=== PATIENT | female | born 1935 | race Caucasian/White ===

== ENCOUNTER → 2016-04-19 | Outpatient (CLI) | payer OTHER, MEDICARE ==
[2016-04-19 13:01] LABS: HEMOGLOBIN A1C 7.23 % (4.2-6.0); MEAN BLOOD GLUCOSE (CALC) 154.759 mg/dL
[2016-04-19 13:43] LABS: BUN/CREATININE RATIO 30.9 (6-20); CALCIUM 10.3 mg/dL (8.7-10.7); CREATININE 1.1 mg/dL (0.50-1.20); POTASSIUM 4.2 meq/L (3.8-5.2)
== END ==
LOC: MOB LAB 11:35
DX: E11.21 Type 2 diabetes mellitus with diabetic nephropathy (principal); E11.9 Type 2 diabetes mellitus without complications
CPT/HCPCS: 36415; 80048; 83036

== ENCOUNTER → 2016-06-05 | Outpatient (CLI) | payer OTHER, MEDICARE ==
[2016-06-05 12:14] LABS: HEMATOCRIT 37.3 % (37.0-47.0); HEMOGLOBIN 12.9 g/dL (12.0-16.0); MEAN CORPUSCULAR HEMOGLOBIN 29.9 PG (27-31); MEAN CORPUSCULAR HGB CONC 34.6 g/dL (33-37); MEAN CORPUSCULAR VOLUME 86.3 FL (81-99); MEAN PLATELET VOLUME 9.1 FL (7.4-12.2); RED BLOOD COUNT 4.32 10^6/uL (4.20-5.40)
[2016-06-05 12:41] LABS: BUN/CREATININE RATIO 24.54 (6-20); CALCIUM 9.7 mg/dL (8.7-10.7); PHOSPHORUS 4.1 mg/dl (2.4-4.3); SERUM ALBUMIN 3.8 g/dL (3.5-4.8)
== END ==
LOC: LAB 11:50
PROVIDERS: ATTEND Physician Assistant Medical
DX: N18.3 Chronic kidney disease, stage 3 (moderate) (principal); D63.1 Anemia in chronic kidney disease; N25.81 Secondary hyperparathyroidism of renal origin; R80.9 Proteinuria, unspecified
CPT/HCPCS: 36415; 80069; 82565; 83970; 84156; 85027

== ENCOUNTER → 2016-06-15 | Outpatient (CLI) | payer OTHER, MEDICARE | LOC: MMPC 11:11 | DX: E11.21 Type 2 diabetes mellitus with diabetic nephropathy (principal); M17.11 Unilateral primary osteoarthritis, right knee; I10 Essential (primary) hypertension; K21.9 Gastro-esophageal reflux disease without esophagitis; E03.9 Hypothyroidism, unspecified; E78.2 Mixed hyperlipidemia; E55.9 Vitamin D deficiency, unspecified; D63.1 Anemia in chronic kidney disease; M10.9 Gout, unspecified | CPT/HCPCS: 99213; G0463 ==

== ENCOUNTER → 2016-06-26 | Outpatient (CLI) | payer OTHER, MEDICARE ==
--- NOTE | 2016-06-26 12:02 | DI ---
RIGHT KNEE, 06/26/2016 10:56 AM: Clinical History: Right knee pain. Previous Exam: 11/11/2009. 4 views are submitted. The AP and tunnel projections are weight bearing views. There is no acute soft tissue, osseous, or joint abnormality. There is moderately severe narrowing of the lateral compartme nt with mild narrowing of the medial compartment. Calcifications are present in the cartilaginous rupal faces of all 3 compartments indicating chondrocalcinosis. There is lateral subluxation of the patella with narrowing of the joint space between the lateral facet of the patella and the lateral femoral c ondyle. Readin. Moderately severe degenerative change of the lateral compartment with mild to moderate degenerati ve change of the patellofemoral and medial compartments. 2. Chondrocalcinosis.
--- NOTE | 2016-06-26 12:18 | DI ---
AP PELVIS and RIGHT HIP, 06/26/2016 10:56 AM: Clinical History: Right hip pain. Previous Exam: None at this facility. There is no soft tissue abnormality. The bony structures of the pelvis are normal. 2 views of the rig ht hip show cystic degenerative changes in the medial aspect of the right acetabulum and the femoral head. There is complete obliteration of the superior joint space. The femoral head is a spherical. Readin. 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 2. The AP pelvis view is unremarkable.
== END ==
LOC: ORTHO 10:58
PROVIDERS: ATTEND Orthopaedic Surgery
DX: M25.561 Pain in right knee (principal); M25.551 Pain in right hip; M16.11 Unilateral primary osteoarthritis, right hip; M17.11 Unilateral primary osteoarthritis, right knee; M11.261 Other chondrocalcinosis, right knee
CPT/HCPCS: 73502; 73564

== ENCOUNTER → 2016-07-10 | Outpatient (CLI) | payer OTHER, MEDICARE | LOC: MMPC 10:00 | PROVIDERS: ATTEND Orthopaedic Surgery | DX: M16.11 Unilateral primary osteoarthritis, right hip (principal); M17.11 Unilateral primary osteoarthritis, right knee | CPT/HCPCS: 99213; G0463 ==

== ENCOUNTER 2016-07-11 11:26 | Day surgery (SDC) | payer OTHER, MEDICARE ==
[~2016-07-11 11:26] MED LIST: BETAMET ACET/BETAMET NA PH 6 MG/1 ML - 5 ML ONE; Iopamidol Inj 61% 50 ML VIAL ONE; LIDOCAINE MPF 2% - 5 ML (20 MG/1 ML) ONE; LIDOCAINE W/ SODIUM BICARB 0.5 ML SYR ONE; ROPIVACAINE HCL 7.5 MG/1 ML - 20 ML ONE
[2016-07-11 11:50] VITALS: RESP 18
[2016-07-11 13:19] VITALS: TEMP 97.4
== END 2016-07-11 12:42 | disposition home or self-care (01) ==
LOC: SDSC 11:26
PROVIDERS: ATTEND Orthopaedic Surgery
DX: M16.11 Unilateral primary osteoarthritis, right hip (principal)
CPT/HCPCS: 20610; 76000; J0702; J2001

== ENCOUNTER → 2016-07-20 | Outpatient (CLI) | payer OTHER, MEDICARE | LOC: MMPC 10:00 | PROVIDERS: ATTEND Orthopaedic Surgery | DX: M16.11 Unilateral primary osteoarthritis, right hip (principal) | CPT/HCPCS: 99213; G0463 ==

== ENCOUNTER → 2016-08-31 | Outpatient (CLI) | payer OTHER, MEDICARE ==
[2016-08-31 13:26] LABS: BLOOD UREA NITROGEN 29 mg/dL (7-22); CALCIUM 9.8 mg/dL (8.7-10.7); CHOL/HDL RATIO 2.51 RATIO (0-4.0); HDL CHOLESTEROL 78 mg/dL (40-150); HEMOGLOBIN A1C 6.85 % (4.2-6.0); SERUM ALBUMIN 3.9 g/dL (3.5-4.8); SERUM CHOLESTEROL 196 mg/dL (120-200); URIC ACID 7.9 mg/dl (2.5-7.5)
[2016-08-31 14:39] LABS: FREE T4 (FREE THYROXINE) 1.01 ng/dL (0.93-1.71)
== END ==
LOC: MOB LAB 11:52
DX: E11.9 Type 2 diabetes mellitus without complications (principal); M10.9 Gout, unspecified; E78.2 Mixed hyperlipidemia; E55.9 Vitamin D deficiency, unspecified; E03.9 Hypothyroidism, unspecified; R25.1 Tremor, unspecified; I12.9 Hypertensive chronic kidney disease with stage 1 through stage 4 chronic kidney disease, or unspecified chronic kidney disease; N18.9 Chronic kidney disease, unspecified; D63.1 Anemia in chronic kidney disease
CPT/HCPCS: 36415; 80053; 80061; 82306; 83036; 84100; 84439; 84443; 84550

== ENCOUNTER 2017-06-09 10:55 | Observation (INO) ==
--- NOTE | 2017-06-09 11:19 | PDOC ---
Shoulder Injury/Pain HPI - General Chief Complaint: Upper Extremity Problem/Injury Stated Complaint: R ARM PAIN Date Seen by Provider: 06/09/17 Time Seen by Provider: 11:19 Source: POSITIVE: Patient Exam Limitations: POSITIVE: No limitations Nurse's Notes Reviewed & Considered: Yes - History of Present Illness Initial Comments: Patient is an 82-year-old female who presents to the emergency department for evaluation of pain. Patient describes pain predominantly in the right arm located in the shoulder radiates down. She does have a history of chronic bilateral shoulder pain but it was worse today. No new trauma. Patient denies chest pain or shortness of breath. She does have some discomfort up into the right side of the neck. No headache or dizziness. Patient denies weakness in the arms. She does have some chronic numbness to her hands bilaterally predominantly at the first second and third digit. Patient is hypertensive and reports taking her medications today. She is also diabetic but sounds like her hemoglobin A1c has been well-controlled. No abdominal pain. No pain or swelling in her lower extremities. Have you received a tetanus shot in the past 10 years?: Yes - Patient Home Medications Home Medications: Home Medications Magnesium [Mag-Tab Sr] 84 mg PO DAILY tab 06/25/13 Cholecalciferol (Vitamin D3) [Vitamin D3] 2 cap PO QD #60 cap 09/01/16 allopurinol 100 mg tablet 100 mg PO BID #180 tab 12/13/16 amlodipine 10 mg tablet 10 mg PO QAM #90 tab 12/13/16 levothyroxine 112 mcg tablet 112 mcg PO QD #102 tab 12/13/16 simvastatin 40 mg tablet 40 mg PO QHS #90 tab 12/13/16 sitagliptin 50 mg tablet 50 mg PO QD #90 tab 03/15/17 Aspirin 162 mg PO 06/09/17 Furosemide [Lasix] 40 mg PO BID 06/09/17 Lisinopril 20 mg PO DAILY 06/09/17 Pentoxifylline 400 mg PO TID 06/09/17 - Patient Allergies Allergies/Adverse Reactions: Allergies 3 Allergy/AdvReac Type Severity Reaction Status Date / Time primidone AdvReac DIZZINESS Verified 06/09/17 11:12 Past Medical History - heen HEENT History: Denies History, Dentures/Partials Cardiovascular History: Hypertension, Arrhythmia, Hyperlipidemia Additional Cardiovasular History: LAST FEW WEEKS HAS FELT "SKIPPED BEATS" Respiratory History: Denies History Gastrointestinal History: Denies History Genitourinary History: Renal Disease Endocrine History: Type 2 Diabetes (oral), Hypothyroidism Musculoskeletal History: Osteoporosis, Gout Additional Musculoskeletal History: DIABETIC NEUROPATHY Neurological History: Denies History Blood Disorders: Anemia Psychiatric History: Denies History History of Sexually Transmitted Diseases: No Female Reproductive History: Denies History Obstetrical History: Denies History Cancer History: Denies History In Past Year Been Physically Harmed or Verbally Threatened: No History of MDRO: No Tobacco Use: Never Smoker Alcohol Use: None In the Past 12 Months, Have Used or Abuse Any Substance: None Previous Surgical History: Yes Type / Date of Surgery: CATARACTS Significant Family History: No pertinent family hx Past Medical History Reviewed: Reviewed - No Changes ROS - Limitations ROS Limitations: No Limitations Constitution: REPORTS: Denies Symptoms Cardiovascular: REPORTS: Denies Cardiac Symptoms Respiratory: REPORTS: Denies Resp Symptoms Neurological: REPORTS: Numbness Gastrointestinal: REPORTS: Denies GI Symptoms Endocrine: REPORTS: Denies Symptoms Musculoskeletal: REPORTS: Other (Right shoulder pain) Genitourinary: REPORTS: Denies Symptoms Eyes: REPORTS: Denies Symptoms ENT: REPORTS: Denies Symptoms Skin: REPORTS: Denies Skin Symptoms Shoulder Injury/Pain Exam - General Appearance General Appearance: POSITIVE: Alert, Cooperative, No Acute Distress - Upper Extremity Shoulder: POSITIVE: Other (There is crepitance and tenderness with range of motion of the right shoulder.) Neuro/Vascular: POSITIVE: Other (Decreased sensation bilaterally for second and third digit. Good pulses and intact cap refill) Skin: POSITIVE: Warm, Dry - HEENT HEENT: POSITIVE: Head Inspection Nml - Neck / Back Neck/Back: POSITIVE: Other (Very minimal tenderness to palpation of the neck no meningismus no deformity) - Respiratory / CVS Respiratory / CVS: POSITIVE: Breath Sounds Normal, No Respiratory Distress, Regular Rate/Rhythm, Other (Systolic murmur noted. Rate and rhythm.) - Abdomen Abdomen: Soft: (All Quadrants), Denies Tenderness: (All Quadrants) Shoulder Pain/Injury Progress - Results Reviewed by me Xrays/CTs/US Reviewed by me: Yes Lab Results Reviewed by Me: Yes CBC and BMP: 06/09/17 11:20 06/09/17 11:30 Rhythm Strip Interpretation: POSITIVE: Other (First-degree A-V no block. ST depression or T-wave inversions. No acute ST elevation.) - Patient's Progress Pain Medication Addressed: POSITIVE: Yes MDM / ED Course: Patient is an 82-year-old female who presents to the emergency department with arm discomfort. Vital signs are notable for hypertension and examination him straights arthritic type changes in the arm and shoulder. Differential diagnosis includes but is not limited to ACS, pneumonia, pneumothorax, arthritis. With right-sided numbness in the hands this appears to be more chronic may be neuropathic in nature immediate MRI at some point. X-ray of the chest is unremarkable other than coronary calcifications and x-ray of the right shoulder does demonstrate severe arthritis. Patient's pain spontaneously resolved with rest initially had ordered morphine. Her initial troponin was negative however the second troponin was trending up. In the setting of hypertension, diabetes, female at age with increasing troponin and abnormal EKG will admit patient for cardiac rule out. Patient Care Time - Estimated PCT Patient Care Time (In Minutes): 45 Vital Signs - Recent Vital Signs Vital Signs: Vital Signs (Last 8 hours) Temp Pulse Resp BP Pulse Ox 06/09/17 11:00 97.6 F 98 18 191/93 96 Discharge Clinical Impression: Right arm pain, Abnormal EKG Discharge Disposition: Admit to Observation Condition: Good Date Decision to Admit to Inpatient: 06/09/17 Time Decision to Admit to Inpatient: 14:06
[2017-06-09] MEDS ORDERED: NORMAL SALINE 10 ML SYRINGE FLUSH IVP PRN ×2 (11:20→14:52)
[2017-06-09] MEDS ORDERED: MORPHINE SULFATE 4 MG/1 ML IVP ONE (11:20)
--- NOTE | 2017-06-09 11:30 | EKG ---
[address] [address] Measurements Intervals [place] Rate: 88 P: 61 NC: 228 QRS: 26 QRSD: 97 T: 70 QT: 361 QTc: 407 Interpretive Statements SINUS RHYTHM WITH FIRST DEGREE AV BLOCK NONSPECIFIC ST & T-WAVE ABNORMALITY Compared to ECG 08/06/2014 08:08:29 T-wave abnormality now present ST (T wave) deviation no longer present Electronically Signed On 06-11-17 08:30:52 MDT by Lucio Zapien MD [email or web address]
[2017-06-09 11:42] LABS: BASOPHILS # (AUTO) 0.01 10*3/UL; BASOPHILS % (AUTO) 0.2 % (0-1); EOSINOPHILS # (AUTO) 0.08 10*3/UL; EOSINOPHILS % (AUTO) 1.5 % (0-8); Hematocrit [HCT] 38.7 % (37.0-47.0); Hemoglobin [HGB] 13.5 g/dL (12.0-16.0); LYMPHOCYTES # (AUTO) 1.16 10*3/uL; MEAN CORPUSCULAR HEMOGLOBIN 29.9 PG (27-31); MEAN CORPUSCULAR HGB CONC 34.9 g/dL (33-37); MEAN CORPUSCULAR VOLUME 85.6 FL (81-99); MONOCYTES # (AUTO) 0.43 10*3/UL (0.3-0.8); MONOCYTES % (AUTO) 8.2 % (5-15); NEUTROPHILS # (AUTO) 3.58 10*3/UL; NEUTROPHILS % (AUTO) 67.9 % (50-80); PLATELET MORPHOLOGY COMMENT NORMAL MORPHOLOGY (NORM); RBC MORPHOLOGY COMMENT NORMAL MORPHOLOGY (NORM); RED BLOOD COUNT 4.52 10^6/uL (4.20-5.40); WBC MORPHOLOGY COMMENT NORMAL MORPHOLOGY (NORM)
[2017-06-09 11:50] LABS: BLOOD UREA NITROGEN 28 mg/dL (7-22); BUN/CREATININE RATIO 23.33 (6-20)
--- NOTE | 2017-06-09 12:07 | DI ---
Chest PA and lateral views INDICATION: Pain COMPARISON: 08/05/14 FINDINGS: PA and lateral views of the chest are obtained. The cardiomediastinal silhouette is within normal limits. Lungs are clear. No pleural effusions. Bony elements are within normal limits. Atherosclerotic vascular disease. IMPRESSION: No acute cardiopulmonary disease.
--- NOTE | 2017-06-09 12:17 | DI ---
RIGHT SHOULDER, Views INDICATION: Pain COMPARISON: None FINDINGS: 3 views of the right shoulder are obtained. Bony structures are intact. Bone mineralization is within normal limits. No dislocation at the glenohumeral joint. Severe degenerative changes at the glenohumeral and acromioclavicular joint spaces. Soft tissues are within normal limits. IMPRESSION: No acute fracture or dislocation identified.
[2017-06-09] MEDS ORDERED: LIDOCAINE W/ SODIUM BICARB 0.5 ML SYR SUBD PRN (14:52)
[2017-06-09] MEDS ORDERED: ONDANSETRON 4 MG/2 ML VIAL IVP PRN (14:52)
[2017-06-09] MEDS ORDERED: CALCIUM CARBONATE 500 MG (TUMS) CHEWABLE TABLET PO PRN (14:52)
[2017-06-09] MEDS: PENTOXIFYLLINE 400 MG PO SCH ×2 (15:46→20:23)
--- NOTE | 2017-06-09 16:11 | PDOC ---
HPI - History of Present Illness Date of Service: 06/09/17 Time of Service: 16:00 Chief Complaint: Right shoulder pain History of Present Illness: This is a very pleasant 82-year-old female accompanied with her son today. She came in with acute onset of right shoulder and arm pain that was quite severe and lasted 10-15 minutes before remitting spontaneously emergency room. Her son saw her and stated that he thought she did not look well which is why she came in for evaluation. She's had about 3 months of bilateral shoulder pain, right worse than left, and some numbness and tingling in her first 3 fingers on her right hand. She denies any shortness of breath, nausea, or vomiting, or diaphoresis with this pain today. She is diabetic. She has a known heart murmur, and stated that she followed a executive legal secretary in the past but after year was excused from the practice as it was felt she no longer needed follow-up. She had an echocardiogram but no stress testing done that she remembers. The results of that echocardiogram are not available. There were no other exacerbating factors, and food does not seem to make the pain worse. EKG in the emergency room showed some nonspecific ST changes. Troponins were negative , but very slight increase from a negative troponin to 1 of 0.02. She does not have hypertension, she has cholesterol problems, she has a family history of heart disease, she does not smoke. Past Medical History Medical History: 1. Diabetes for more than 20 years on Januvia. 2. 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 3. Hypertension. 4. Hyperlipidemia. 5. Gout Surgical History: 1. Bladder suspension. 2. Cataract surgery few years ago Family History: Reviewed an Not Pertinent Pertinent Family History: Significant for coronary artery disease in her father and in one of her sons. Past Social History: Does not smoke. Had 2 biologic sons and adopted daughter. She has 1 son living as her younger son of heart disease complications. She is . Does not drink alcohol. Tobacco Use: Never Smoker In the Past 12 Months, Have Used or Abuse Any of the Following Substance: None Alcohol Use: None Medication / Allergies Home Medications: Home Medications 3 Medication Instructions Recorded Confirmed Type Magnesium [Mag-Tab Sr] 84 mg PO DAILY tab 06/25/13 06/09/17 History Cholecalciferol (Vitamin D3) 2 cap PO QD #60 cap 09/01/16 06/09/17 Rx [Vitamin D3] allopurinol 100 mg tablet 100 mg PO BID #180 tab 12/13/16 06/09/17 Rx amlodipine 10 mg tablet 10 mg PO QAM #90 tab 12/13/16 06/09/17 Rx levothyroxine 112 mcg tablet 112 mcg PO QD #102 tab 12/13/16 06/09/17 Rx simvastatin 40 mg tablet 40 mg PO QHS #90 tab 12/13/16 06/09/17 Rx sitagliptin 50 mg tablet 50 mg PO QD #90 tab 03/15/17 06/09/17 Rx Aspirin 162 mg PO 06/09/17 History Furosemide [Lasix] 40 mg PO BID 06/09/17 06/09/17 History Lisinopril 20 mg PO DAILY 06/09/17 06/09/17 History Pentoxifylline 400 mg PO TID 06/09/17 06/09/17 History Allergies/Adverse Reactions: Allergies 3 Allergy/AdvReac Type Severity Reaction Status Date / Time primidone AdvReac DIZZINESS Verified 06/09/17 11:12 Review of Systems - Review of Systems All Systems: Reviewed & No Additional Complaints Except as Stated (I did a 12 point review systems and it is negative other than the history of present illness noted above and the exceptions noted below) - Respiratory Respiratory: REPORTS: Negative System Review - Cardiovascular Cardiovascular: REPORTS: See HPI - Gastrointestinal Gastrointestinal / Abdominal: REPORTS: Negative System Review - Genitourinary Genitourinary: REPORTS: Incontinence (Urinary incontinence despite bladder sling.) - Musculoskeletal Musculoskeletal: REPORTS: Joint Pain - Hands (Gets tingling in her fingers, particularly her first 3 digits.), Joint Pain - Shoulders (Bilaterally, right greater than left), Joint Pain - Hips, Joint Pain - Knees, Other (Swelling in right calf daily, with negative ultrasound recently done for looking at DVT. It is worse during the day with use.) - Neurological Neurologic: REPORTS: Negative System Review Exam - Vitals Vital Signs: Vital Signs Temperature 96.6 F Temperature Source Temporal Artery Scan Pulse Rate [Pulse Oximeter 72 Right] Pulse Rate 77 Respiratory Rate 16 Blood Pressure 141/78 Pulse Ox 94 Oxygen Delivery Method Room Air Height 5 ft 5 in Weight 201 lb 9.6 oz - General General Appearance: No Acute Distress, Cooperative - Head Head Exam: Normal Inspection, Normocephalic, Atraumatic - Eye Eye Exam: POSITIVE: No Scleral Icterus - ENT ENT Exam: POSITIVE: Mucous Membranes Moist - Neck Neck Exam: Normal Inspection, No Tenderness, No Lymphadenopathy, No Thyromegaly , JVP is not Raised - Respiratory Respiratory Exam: POSITIVE: Clear to Auscultation - Bilaterally, Breathing Non Labored, Normal to Percussion and Palpation - Cardiovascular Cardiovascular Exam: POSITIVE: RRR, No Clicks, No Gallops, No Rubs, Systolic Murmur, No JVD - GI/Abdominal GI/Abdominal Exam: POSITIVE: Normal Bowel Sounds, Non Tender, Non Distended, Soft - Rectal Rectal Exam: POSITIVE: Deferred - External Exam: POSITIVE: Deferred Exam: POSITIVE: Deferred - Extremities Extremities Exam: POSITIVE: No Clubbing Present, No Edema Present, No Cyanosis Present Additional Extremities Exam Details: Actos pain is noted in lower extremities. She had sclerosing injections done in the past, more than 10 years ago - Neurological Neurological Exam: POSITIVE: Alert, Oriented x 3, No Facial Droop, Speech Intact / Clear, Moves All Extremities Equally Additional Neurological Exam Details: Does have slight increase in tingling upon tapping on the median nerve. - Psychiatric Psychiatric Exam: POSITIVE: Normal Affect, Normal Mood Results - Labs CBC and BMP: 06/09/17 11:20 06/09/17 11:30 Additional Lab Results: Laboratory Results 06/09/17 06/09/17 06/09/17 Range/Units 11:20 11:20 11:30 WBC 5.27 (4.8-10.8) 10^3/uL RBC 4.52 (4.20-5.40) 10^6/uL Hgb 13.5 (12.0-16.0) g/dL Hct 38.7 (37.0-47.0) % MCV 85.6 (81-99) FL MCH 29.9 (27-31) PG MCHC 34.9 (33-37) g/dL RDW Std Deviation 43.2 (39-50) fL RDW Coeff of Rachel 14.2 (11.5-14.5) % Plt Count 207 (140-350) 10*3/uL MPV 9.0 (7.4-12.2) FL Immature Gran % (Auto) 0.2 (0-5) % Neut % (Auto) 67.9 (50-80) % Lymph % (Auto) 22.0 (10-50) % [place] % (Auto) 8.2 (5-15) % Eos % (Auto) 1.5 (0-8) % Baso % (Auto) 0.2 (0-1) % Immature Gran # (Auto) 0.01 10*3/UL Neut # (Auto) 3.58 10*3/UL Lymph # (Auto) 1.16 10*3/uL [place] # (Auto) 0.43 (0.3-0.8) 10*3/UL Eos # (Auto) 0.08 10*3/UL Baso # (Auto) 0.01 10*3/UL WBC Morphology Comment Normal morphology (NORM) Plt Morphology Comment Normal morphology (NORM) RBC Morph Comment Normal morphology (NORM) Sodium 141 (135-145) meq/L Potassium 4.1 (3.8-5.2) meq/L Chloride 102 (98-112) meq/L Carbon Dioxide 24 (23-33) meq/L Anion Gap 15 (5-20) BUN 28 H (7-22) mg/dL Creatinine 1.2 (0.50-1.20) mg/dL BUN/Creatinine Ratio 23.33 H (6-20) Glucose 248 H (78-110) mg/dL Calculated Osmolality 305.0 H (267-292) mOsm/kg Calcium 10.0 (8.7-10.7) mg/dL Troponin I Handheld 0.000 (< 0.040) ng/mL 06/09/17 Range/Units 13:33 WBC (4.8-10.8) 10^3/uL RBC (4.20-5.40) 10^6/uL Hgb (12.0-16.0) g/dL Hct (37.0-47.0) % MCV (81-99) FL MCH (27-31) PG MCHC (33-37) g/dL RDW Std Deviation (39-50) fL RDW Coeff of Rachel (11.5-14.5) % Plt Count (140-350) 10*3/uL MPV (7.4-12.2) FL Immature Gran % (Auto) (0-5) % Neut % (Auto) (50-80) % Lymph % (Auto) (10-50) % [place] % (Auto) (5-15) % Eos % (Auto) (0-8) % Baso % (Auto) (0-1) % Immature Gran # (Auto) 10*3/UL Neut # (Auto) 10*3/UL Lymph # (Auto) 10*3/uL [place] # (Auto) (0.3-0.8) 10*3/UL Eos # (Auto) 10*3/UL Baso # (Auto) 10*3/UL WBC Morphology Comment (NORM) Plt Morphology Comment (NORM) RBC Morph Comment (NORM) Sodium (135-145) meq/L Potassium (3.8-5.2) meq/L Chloride (98-112) meq/L Carbon Dioxide (23-33) meq/L Anion Gap (5-20) BUN (7-22) mg/dL Creatinine (0.50-1.20) mg/dL BUN/Creatinine Ratio (6-20) Glucose (78-110) mg/dL Calculated Osmolality (267-292) mOsm/kg Calcium (8.7-10.7) mg/dL Troponin I Handheld 0.020 (< 0.040) ng/mL - EKG Data -: EKG Interpreted by Me EKG Shows Normal: Sinus Rhythm - EKG Data EKG Interpretation: Nonspecific ST-T Wave Changes, Other (First-degree AV block) - Imaging Status: Image Reviewed by Me (chest x-ray is negative for pneumonia or congestive heart failure) Assessment and Plan - Patient Problems (1) Atypical chest pain Current Visit: Yes Status: Acute Code(s): R07.89 - Other chest pain (2) Right shoulder pain Current Visit: Yes Status: Acute Code(s): M25.511 - Pain in right shoulder Qualifiers: Chronicity: acute Qualified Code(s): M25.511 - Pain in right shoulder (3) Diabetic neuropathy Current Visit: Yes Status: Chronic (4) Diabetes mellitus Current Visit: Yes Status: Chronic Qualifiers: Diabetes mellitus type: type 2 Diabetes mellitus assisted insulin use: without digital pre press operator use Diabetes mellitus complication status: with kidney complications Diabetes mellitus complication detail: with nephropathy Qualified Code(s): E11.21 - Type 2 diabetes mellitus with diabetic nephropathy (5) Varicose ulcer of lower extremity Current Visit: Yes Status: Chronic Qualifiers: Laterality: right Qualified Code(s): I83.019 - Varicose veins of right lower extremity with ulcer of unspecified site; L97.919 - Non-pressure chronic ulcer of unspecified part of right lower leg with unspecified severity (6) Mixed hyperlipidemia Current Visit: No Status: Chronic (7) Hypothyroidism Current Visit: Yes Status: Chronic Code(s): E03.9 - Hypothyroidism, unspecified Qualifiers: Hypothyroidism type: acquired Qualified Code(s): E03.9 - Hypothyroidism, unspecified (8) Hypertension Current Visit: Yes Status: Chronic Code(s): I10 - Essential (primary) hypertension Qualifiers: Hypertension type: essential hypertension Qualified Code(s): I10 - Essential (primary) hypertension - Assessment / Plan Additional Assessment/Plan Details: Plan: 1. Do serial enzymes and EKG if necessary 2. Aspirin/beta godfrey if necessary/Lovenox at prophylactic dose 3. We'll have the patient do a stress test [- chemical] 4. Will hold off on proton pump inhibitor 5. Nitroglycerin when necessary for chest pain 6. Morphine if necessary via IV 7. Oxygen if necessary 8. If testing indicates further need for evaluation, discussion with cardiology. If testing is negative for myocardial infarction and no further indication for coronary artery disease, consider outpatient workup for GI source , pulmonary source, or other 9. We'll consult orthopedics for the right shoulder pain, the x-ray shows what appears to be severe degenerative changes so probably arthritic, also for what looks like right tunnel syndrome. Ultimately, doing a chest pain workup may help risk stratify the patient for any potential orthopedic surgeries down the road. She is dropping several objects with her right hand and she is right- handed, so I do think that this may need to be addressed. She is functional and is independently living. 10. AL hose stocking for the right lower extremity. 11. Plan above discussed with patient and her son and they agreed. Patient is DO NOT RESUSCITATE CODE STATUS discussed and they agreed.
--- NOTE | 2017-06-09 17:25 | DI ---
EXAM: XR Right Wrist Complete, 3 or More Views CLINICAL HISTORY: ITS.REASON wrist pain and tingling in fingers, right side Physician Notes: Tech Comments: TECHNIQUE: Frontal, lateral and oblique views of the right wrist. COMPARISON: No relevant prior studies available. FINDINGS: Bones/joints: Degenerative changes first carpometacarpal joint. Mild degenerative changes with joint space narrowing at the radiocarpal joint. No acute fracture. No dislocation. Soft tissues: Unremarkable. No radiopaque foreign body. Vasculature: Atherosclerotic vascular disease. Other findings: Small, hyperdensity in the TFCC may be CPPD. IMPRESSION: 1. No fracture or malalignment. 2. Degenerative changes. 3. Small hyperdensity in the TFCC may be CPPD.
[2017-06-09 17:45] LABS: AMPHETAMINE SCREEN NEGATIVE (NEG); CANNABINOID SCREEN,URINE NEGATIVE (NEG); COCAINE SCREEN NEGATIVE (NEG); METHADONE URINE SCREEN NEGATIVE (NEG); METHAMPHETAMINES SCREEN,URINE NEGATIVE (NEG); OPIATE SCREEN,URINE NEGATIVE (NEG); URINE SAMPLE TYPE CLEAN CATCH URINE; URINE SPECIFIC GRAVITY - MAN 1.011
[2017-06-09] MEDS: Simvastatin Tab 40 MG TAB PO SCH (20:22)
[2017-06-09] MEDS: FUROSEMIDE 20 MG TABLET PO SCH (20:22)
[2017-06-09] MEDS: ALLOPURINOL 100 MG TABLET PO SCH (20:22)
[2017-06-09] MEDS ORDERED: ACETAMINOPHEN 325 MG TABLET PO PRN (22:58)
[2017-06-10 02:35] LABS: CHOL/HDL RATIO 2.88 RATIO (0-4.0)
[2017-06-10] MEDS: LEVOTHYROXINE 112 MCG TABLET PO SCH ×2 (04:37→04:43)
[2017-06-10] MEDS ORDERED: ASPIRIN 81 MG (BABY) CHEWABLE TABLET PO SCH (09:00)
[2017-06-10] MEDS: sitaGLIPtin Tab 100 MG TAB PO SCH (10:36)
[2017-06-10] MEDS: MAGNESIUM OXIDE 400 MG TABLET PO SCH (10:36)
[2017-06-10] MEDS: LISINOPRIL 20 MG TABLET PO SCH (10:36)
[2017-06-10] MEDS: ALLOPURINOL 100 MG TABLET PO SCH ×2 (10:36→21:26)
[2017-06-10] MEDS: ENOXAPARIN SODIUM 30 MG/0.3 ML SYRINGE SUBCUT SCH (10:37)
[2017-06-10] MEDS: PENTOXIFYLLINE 400 MG PO SCH ×3 (10:38→21:26)
[2017-06-10] MEDS: CHOLECALCIFEROL 1000 IU TABLET PO SCH (10:39)
[2017-06-10] MEDS: FUROSEMIDE 20 MG TABLET PO SCH (10:42)
--- NOTE | 2017-06-10 12:34 | STRESSTEST ---
[facility] [place] Interpretive Statements This is an 82 YO female that presented with an acute onset of right shoulder pain, atypical chest pain, has DMII, HTN, high cholesterol, and family history of heart disease. Exercised in [place] scan protocol. resting EKG, 1st degree AV block. with pre test monitoring, this actually looks like a Mobitz II with infrequent dropped beats. Has murmur suggestive of aortic stenosis. BP''s decreased during test, but no symptoms. Plan: stress images today, and rest images tomorrow, radiology to then review. [email or web address]
--- NOTE | 2017-06-10 12:53 | PDOC(PROG) ---
Date and Time of Service: 06/10/2017, 1248 Interval History: No chest pain, shortness breath, had 3 or 4 episodes where the shoulder pain with scan to start again but never did progress. Tolerated stress portion of Lexiscan very well. Objective : Data - Labs CBC and BMP: 06/09/17 11:20 06/09/17 11:30 Additional Lab Results: Laboratory Results 06/09/17 06/09/17 06/09/17 Range/Units 13:33 14:52 20:20 ESR (0-20) MM/HR Troponin I Handheld 0.020 (< 0.040) ng/mL Troponin I < 0.012 (< 0.040) ng/mL Triglycerides (44-200) mg/dL Cholesterol (120-200) mg/dL LDL Cholesterol, Calc mg/dL VLDL Cholesterol (0-40) mg/dL HDL Cholesterol (40-150) mg/dL Cholesterol/HDL Ratio (0-4.0) RATIO TSH (0.2700-4.2000) uIU/mL Free T4 (0.93-1.71) ng/dL Ur Collection Type Clean catch urine U Specif Grav (Refrac) 1.011 Urine Opiates Screen Negative (NEG) Ur Buprenorphine Negative (NEG) Ur Oxycodone Screen Negative (NEG) Urine Methadone Screen Negative (NEG) Ur Propoxyphene Screen Negative (NEG) Barbiturate Screen Negative (NEG) U Tricyclic Antidepress Negative (NEG) Phencyclidine Screen Negative (NEG) Amphetamines Screen Negative (NEG) U Methamphetamines Scrn Negative (NEG) Benzodiazepines Screen Negative (NEG) Cocaine Screen Negative (NEG) U Marijuana (THC) Screen Negative (NEG) 06/10/17 06/10/17 06/10/17 Range/Units 02:18 02:18 02:18 ESR (0-20) MM/HR Troponin I Handheld (< 0.040) ng/mL Troponin I 0.022 (< 0.040) ng/mL Triglycerides 124 (44-200) mg/dL Cholesterol 173 (120-200) mg/dL LDL Cholesterol, Calc 88.200 mg/dL VLDL Cholesterol 24 (0-40) mg/dL HDL Cholesterol 60 (40-150) mg/dL Cholesterol/HDL Ratio 2.88 (0-4.0) RATIO TSH 1.83 (0.2700-4.2000) uIU/mL Free T4 1.37 (0.93-1.71) ng/dL Ur Collection Type U Specif Grav (Refrac) Urine Opiates Screen (NEG) Ur Buprenorphine (NEG) Ur Oxycodone Screen (NEG) Urine Methadone Screen (NEG) Ur Propoxyphene Screen (NEG) Barbiturate Screen (NEG) U Tricyclic Antidepress (NEG) Phencyclidine Screen (NEG) Amphetamines Screen (NEG) U Methamphetamines Scrn (NEG) Benzodiazepines Screen (NEG) Cocaine Screen (NEG) U Marijuana (THC) Screen (NEG) 06/10/17 Range/Units 02:18 ESR 35 H (0-20) MM/HR Troponin I Handheld (< 0.040) ng/mL Troponin I (< 0.040) ng/mL Triglycerides (44-200) mg/dL Cholesterol (120-200) mg/dL LDL Cholesterol, Calc mg/dL VLDL Cholesterol (0-40) mg/dL HDL Cholesterol (40-150) mg/dL Cholesterol/HDL Ratio (0-4.0) RATIO TSH (0.2700-4.2000) uIU/mL Free T4 (0.93-1.71) ng/dL Ur Collection Type U Specif Grav (Refrac) Urine Opiates Screen (NEG) Ur Buprenorphine (NEG) Ur Oxycodone Screen (NEG) Urine Methadone Screen (NEG) Ur Propoxyphene Screen (NEG) Barbiturate Screen (NEG) U Tricyclic Antidepress (NEG) Phencyclidine Screen (NEG) Amphetamines Screen (NEG) U Methamphetamines Scrn (NEG) Benzodiazepines Screen (NEG) Cocaine Screen (NEG) U Marijuana (THC) Screen (NEG) - Imaging X-Ray Status: Report Reviewed by Me (X-ray wrist has some degenerative changes. This is on the right wrist.) Objective : Exam - General General Appearance: No Acute Distress, Cooperative Additional General Exam Details: Vital Signs - Last Taken Temperature 97 F 06/10/17 11:17 Pulse Rate 72 06/10/17 11:17 Respiratory Rate 20 06/10/17 11:17 Blood Pressure 140/78 06/10/17 11:17 Pulse Ox 96 06/10/17 11:17 - Eye Eye Exam: No Scleral Icterus - ENT ENT Exam: Mucous Membranes Moist - Respiratory Respiratory Exam: Clear to Auscultation - Bilaterally, Breathing Non Labored - Cardiovascular Cardiovascular Exam: RRR, No Clicks, No Gallops, No Rubs, Systolic Murmur, No JVD - GI/Abdominal GI/Abdominal Exam: Normal Bowel Sounds, Non Tender, Non Distended, Soft - Extremities Extremities Exam: No Clubbing Present, No Edema Present, No Cyanosis Present - Neurological Neurological Exam: Alert, Oriented x 3, No Facial Droop, Speech Intact / Clear, Moves All Extremities Equally Assessment and Plan - Patient Problems (1) Atypical chest pain Current Visit: Yes Status: Acute Code(s): R07.89 - Other chest pain (2) Right shoulder pain Current Visit: Yes Status: Acute Code(s): M25.511 - Pain in right shoulder Qualifiers: Chronicity: acute Qualified Code(s): M25.511 - Pain in right shoulder (3) Diabetic neuropathy Current Visit: Yes Status: Chronic (4) Diabetes mellitus Current Visit: Yes Status: Chronic Qualifiers: Diabetes mellitus type: type 2 Diabetes mellitus termite treater insulin use: without [place] use Diabetes mellitus complication status: with kidney complications Diabetes mellitus complication detail: with nephropathy Qualified Code(s): E11.21 - Type 2 diabetes mellitus with diabetic nephropathy (5) Varicose ulcer of lower extremity Current Visit: Yes Status: Chronic Qualifiers: Laterality: right Qualified Code(s): I83.019 - Varicose veins of right lower extremity with ulcer of unspecified site; L97.919 - Non-pressure chronic ulcer of unspecified part of right lower leg with unspecified severity (6) Mixed hyperlipidemia Current Visit: No Status: Chronic (7) Hypothyroidism Current Visit: Yes Status: Chronic Code(s): E03.9 - Hypothyroidism, unspecified Qualifiers: Hypothyroidism type: acquired Qualified Code(s): E03.9 - Hypothyroidism, unspecified (8) Hypertension Current Visit: Yes Status: Chronic Code(s): I10 - Essential (primary) hypertension Qualifiers: Hypertension type: essential hypertension Qualified Code(s): I10 - Essential (primary) hypertension - Assessment / Plan Additional Assessment/Plan Details: During the Lexiscan, we did notice that the patient had a persistently prolonging LA interval, and. The patient would have an occasional dropped beat and she may have a Mobitz type II AV block. She is not symptomatic. The dropped beat is not very frequent. She probably has underlying aortic stenosis that she does have radiation of the carotids on exam. Cholesterol looks well controlled. Overall, finished Lexiscan tomorrow, and probably arrange cardiology follow-up for echocardiogram and review of her stress test results and possible Holter monitoring as well. Orthopedics will help in terms of assessing right shoulder issues and right wrist issues. I did consult discussed case with Dr. Oliveros who see the patient. Probably the patient will need outpatient follow-up with him.
[2017-06-10] MEDS ORDERED: IBUPROFEN 600 MG TABLET PO PRN (13:26)
--- NOTE | 2017-06-10 14:01 | CONSULT ---
Consult Note - Consult Consult Date: 06/10/17 Reason for Consult: Orthopedic Consult Requesting Physician: Dr. Vik Fallon Primary Care Provider: Jacinto Angulo MD - History of Present Illness History of Present Illness: Patient is an 82-year-old female [id number] who has a lot of areas of arthritis including her right hip and carpal tunnel syndrome which has been progressing over the last 6 months. She is also noted to have some intermittent shoulder pain but more recently been causing her a fair amount of discomfort over the last couple months and worse really yesterday which brought her to the emergency room and she was admitted for a potential cardiac issue because of her diabetes and neuropathy. Patient notes inability to use her right arm trouble picking up moving sleeping and general utilization of the arm. She recalls no specific injury that started the symptoms off. Past Medical History Medical History: 1. Diabetes for more than 20 years on Januvia. 2. 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 3. Hypertension. 4. Hyperlipidemia. 5. Gout Surgical History: 1. Bladder suspension. 2. Cataract surgery few years ago Family History: Reviewed an Not Pertinent Pertinent Family History: Significant for coronary artery disease in her father and in one of her sons. Past Social History: Does not smoke. Had 2 biologic sons and adopted daughter. She has 1 son living as her younger son of heart disease complications. She is . Does not drink alcohol. Tobacco Use: Never Smoker In the Past 12 Months, Have Used or Abuse Any of the Following Substance: None Alcohol Use: None Medication / Allergies Home Medications: Home Medications 3 Medication Instructions Recorded Confirmed Type Magnesium [Mag-Tab Sr] 84 mg PO DAILY tab 06/25/13 06/09/17 History Cholecalciferol (Vitamin D3) 2 cap PO QD #60 cap 09/01/16 06/09/17 Rx [Vitamin D3] allopurinol 100 mg tablet 100 mg PO BID #180 tab 12/13/16 06/09/17 Rx amlodipine 10 mg tablet 10 mg PO QAM #90 tab 12/13/16 06/09/17 Rx levothyroxine 112 mcg tablet 112 mcg PO QD #102 tab 12/13/16 06/09/17 Rx simvastatin 40 mg tablet 40 mg PO QHS #90 tab 12/13/16 06/09/17 Rx sitagliptin 50 mg tablet 50 mg PO QD #90 tab 03/15/17 06/09/17 Rx Aspirin 162 mg PO 06/09/17 History Furosemide [Lasix] 40 mg PO BID 06/09/17 06/09/17 History Lisinopril 20 mg PO DAILY 06/09/17 06/09/17 History Pentoxifylline 400 mg PO TID 06/09/17 06/09/17 History Allergies/Adverse Reactions: Allergies 3 Allergy/AdvReac Type Severity Reaction Status Date / Time primidone AdvReac DIZZINESS Verified 06/09/17 11:12 Exam - Vitals Vital Signs: Vital Signs Temperature 97 F Temperature Source Temporal Artery Scan Pulse Rate [Apical] 76 Pulse Rate [Pulse Oximeter 72 Right] Pulse Rate 75 Respiratory Rate 20 Blood Pressure [Left Arm] 140/78 Blood Pressure 141/78 Pulse Ox 96 Oxygen Delivery Method Room Air Height 5 ft 5 in Weight 90.809 kg Examination shows that the patient's gait is antalgic shows a positive Trendelenburg on the right she has hip flexion to 90 internal rotation is about 5 her external rotation is about 10 pain discomfort positive [place]. Mild leg length discrepancy, right shorter than left as far as the right shoulder forward flexion is about 70 abduction is about 60 external rotation barely get to neutral position internal rotation is across the front of her body she has some tenderness to palpation over the glenohumeral joint she has good pulses brisk refill crepitance with movement of the shoulder. She has a positive Tinel's at the carpal canal on the right and the left going into the index finger thumb and ring finger Phalen side is mild she has thenar atrophy left seems to be a little worse on the right she has good pulses brisk refill. Patient a previous x-rays of her hip which show advanced arthritic changes to the right hip. Radiographs of the wrist show some carpometacarpal arthritis but otherwise reasonable joint space preservation around the radius and the carpal bones. Radiographs of the right shoulder show advanced arthritic changes to the right shoulder she is essentially started to wear the glenoid on the superior half significantly and reshaped of the joint her coracoacromial ligament seems to be intact keeping the shoulder joint localized. High riding humerus significant [id number] and cystic changes. 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 This was the right hip I think total hip replacement would be a reasonable option at some point in time if she so chooses. As well as a right shoulder she has advanced arthritic changes we discussed that cortisone injection to see if we can help control her symptoms. Apparently she has stage III kidney disease and anti-inflammatory agents at least long-term are probably not a good option for her so if the shot is not called for any length of time the only other option she would would be a reverse shoulder and we would get her to see a subspecialist if she would like to do that. She will let us know as we move forward in time. Informed consent was discussed and obtained for injection into the right shoulder so after sterile preparation with povidone and alcohol through a posterior portal region using a 25-gauge needle we injected 2 mL of Celestone and 1 mL of 2% lidocaine and 1 mL of 0.5% ropivacaine. The arm was cleansed of the needle was removed and a Band-Aid was applied. Patient move the elbow was not sure if she was really having any marked improvement early on. We discussed issues in regard to the injection and diabetes. - Time/Visit Time Spent With Patient: Greater Than 35 Mintues (Also did an shoulder injection on the right with Celestone 2 mL 1 mL of 0.5% ropivacaine and 1 mL of 2% lidocaine)
[2017-06-10] MEDS: Simvastatin Tab 40 MG TAB PO SCH (21:26)
[2017-06-11] MEDS ORDERED: LEVOTHYROXINE 112 MCG TABLET PO SCH (05:30)
[2017-06-11] MEDS ORDERED: FUROSEMIDE 40 MG TABLET PO SCH (07:00)
[2017-06-11] MEDS ORDERED: ASPIRIN 81 MG (BABY) CHEWABLE TABLET PO SCH (09:00)
[2017-06-11] MEDS ORDERED: PENTOXIFYLLINE 400 MG PO SCH (09:00)
[2017-06-11] MEDS ORDERED: ALLOPURINOL 100 MG TABLET PO SCH (09:00)
[2017-06-11] MEDS: sitaGLIPtin Tab 100 MG TAB PO SCH (10:54)
[2017-06-11] MEDS: CHOLECALCIFEROL 1000 IU TABLET PO SCH (10:54)
[2017-06-11] MEDS: MAGNESIUM OXIDE 400 MG TABLET PO SCH (10:55)
[2017-06-11] MEDS: ENOXAPARIN SODIUM 30 MG/0.3 ML SYRINGE SUBCUT SCH (10:55)
[2017-06-11] MEDS: LISINOPRIL 20 MG TABLET PO SCH (10:55)
[2017-06-11] MEDS: ALLOPURINOL 100 MG TABLET PO SCH (10:56)
[2017-06-11 11:08] VITALS: BP 130/68; RESP 18; TEMP 97.8; O2SAT 98
--- NOTE | 2017-06-11 13:43 | DI ---
2 DAY LEXISCAN STRESS & REST MYOCARDIAL PERFUSION SCANS, 06/10/2017-06/11/2017: Clinical History: Chest pain. Previous Exam: None at this facility. Monitoring Physician: Dr. Vik Meneses. Dose: Stress dose: 39 mCi on 06/10/2017. Rest dose: 39 mCi on 06/10/2017. Quantitative Analysis: CommProve program with low dose limited CT chest scan attenuation correctio n. Exam Quality: Excellent. Rejected Beats: Stress = 4%; Rest = 5%. HR: Stress = 74-83 b/m; Rest = 83-9 1 b/m. Left ventricular chamber sizes are normal at stress and rest. Transient ischemic dilatation ratio is 1.00 (normal Rohit TID <= 1.22; normal Lexiscan TID <= 1.33). Stress LVEF: 75%; rest LVEF: 75%. Both the non-attenuated and the attenuated corrected scans show a normal stress and rest myocardial perfus ion. There is normal stress and rest wall motion and thickening. Limited CT scans of the heart show e xtensive calcifications in the left mainstem, the proximal and middle thirds of the LAD, and almost a ll of the left circumflex and right coronary arteries. Calcifications are also felt to be present in the aortic valve. There are no lung nodules or enlarged nodes. Readin. Normal stress and rest left ventricular chamber size. Transient ischemic dilatation ratio is norm al at 1.00. 2. Normal stress and rest LVEF values of 75% each. 3. Normal stress and rest myocardial perfusion, wall motion, and thickening. 4. Extensive coronary artery calcifications involving the left mainstem, proximal and middle thirds of the LAD, virtually all of the right coronary artery and left circumflex artery. There may also be calcifications in the aortic valve.
--- NOTE | 2017-06-11 15:33 | DCSUMMARY ---
Hospitalization Summary Admit Date: 06/09/2017 Discharge Date: 06/11/17 Primary Diagnosis:: atypical chest pain, probably right shoulder arthritis Secondary Diagnosis:: Aortic stenosis, Mobitz block type I versus type II Hospital Course: This very pleasant 82-year-old female that presented with right shoulder pain and possible atypical chest pain. She had several risk factors and so she was admitted for a rule out of myocardial infarction. She did rule out for myocardial infarction and then we did a stress test to look for coronary artery disease. She had several artery calcifications but her stress test was negative for any reversible or fixed defects. She has a large murmur that is probably aortic stenosis that probably should be reevaluated with echocardiogram , although she is not symptomatic from this. During her stress testing, we did notice that she has what appears to be a possible Mobitz type I versus Mobitz type II block. We did arrange for her to visit with her community fundraiser to review and possibly do some longer term heart monitoring to see if that block is truly there. Patient had an orthopedic consultation as well for right shoulder pain she had that injected and did report that it improved to some degree. She probably eventually needs a shoulder replacement as well as a hip replacement and she probably has right carpal tunnel syndrome. Prior to discharge, we arrange follow-ups with cardiology, echocardiogram, and nerve conduction studies of the right wrist. She will follow with orthopedics. Today she denies any chest pain, short is breath, nausea or vomiting. Right shoulder does feel better. Assessment and Plan: 1. As per discharge assessments noted 2. Disposition: Patient is discharged home. 3. Condition on discharge, stable and improved. 4. Diet: regular diet 5. Activities: resume normal activities 6. Follow-Up: 1. Dr. Oliveros for follow-up on joints and carpal tunnel 2. Dr. Valencia regarding aortic stenosis and possible block. 3. Dr. Schwartz next week 7. Medications at the Time of Discharge: 8. Time, care, counseling and coordination of care for this discharge is greater than 30 minutes. Exam - Vitals Vital Signs: Vital Signs Temperature 97.8 F Temperature Source Temporal Artery Scan Pulse Rate [Apical] 76 Pulse Rate [Pulse Oximeter 85 Right] Pulse Rate 76 Respiratory Rate 18 Blood Pressure [Left Arm] 130/68 Blood Pressure 141/78 Pulse Ox 98 Oxygen Delivery Method Room Air Height 5 ft 5 in Weight 200 lb 3.2 oz - General General Appearance: No Acute Distress, Cooperative - Eye Eye Exam: POSITIVE: No Scleral Icterus - ENT ENT Exam: POSITIVE: Mucous Membranes Moist - Respiratory Respiratory Exam: POSITIVE: Clear to Auscultation - Bilaterally, Breathing Non Labored - Cardiovascular Cardiovascular Exam: POSITIVE: RRR, No Clicks, No Gallops, No Rubs, Systolic Murmur, No JVD - GI/Abdominal GI/Abdominal Exam: POSITIVE: Normal Bowel Sounds, Non Tender, Non Distended, Soft - Extremities Extremities Exam: POSITIVE: No Clubbing Present, No Edema Present, No Cyanosis Present - Neurological Neurological Exam: POSITIVE: Alert, Oriented x 3, No Facial Droop, Speech Intact / Clear, Moves All Extremities Equally Data Peritnent Studies: 06/09/17 06/09/17 06/09/17 11:20 11:20 11:30 WBC 5.27 Hgb 13.5 Hct 38.7 Plt Count 207 ESR Sodium 141 Potassium 4.1 Chloride 102 Carbon Dioxide 24 Anion Gap 15 BUN 28 H Creatinine 1.2 BUN/Creatinine Ratio 23.33 H Glucose 248 H Calculated Osmolality 305.0 H Calcium 10.0 Troponin I Handheld 0.000 Troponin I Triglycerides Cholesterol LDL Cholesterol, Calc VLDL Cholesterol HDL Cholesterol Cholesterol/HDL Ratio TSH Free T4 06/09/17 06/09/17 06/10/17 13:33 20:20 02:18 WBC Hgb Hct Plt Count ESR Sodium Potassium Chloride Carbon Dioxide Anion Gap BUN Creatinine BUN/Creatinine Ratio Glucose Calculated Osmolality Calcium Troponin I Handheld 0.020 Troponin I < 0.012 0.022 Triglycerides Cholesterol LDL Cholesterol, Calc VLDL Cholesterol HDL Cholesterol Cholesterol/HDL Ratio TSH Free T4 06/10/17 06/10/17 06/10/17 02:18 02:18 02:18 WBC Hgb Hct Plt Count ESR 35 H Sodium Potassium Chloride Carbon Dioxide Anion Gap BUN Creatinine BUN/Creatinine Ratio Glucose Calculated Osmolality Calcium Troponin I Handheld Troponin I Triglycerides 124 Cholesterol 173 LDL Cholesterol, Calc 88.200 VLDL Cholesterol 24 HDL Cholesterol 60 Cholesterol/HDL Ratio 2.88 TSH 1.83 Free T4 1.37 Procedures: [address] [facility] [place] [address] PH: DD: [phone] FAX: [phone] ~DIAGNOSTIC IMAGING REPORT~ Patient: ALISIA COVARRUBIAS : 1935 Sex: F Age: 82 Exam Name: MO Myocardial Multi-Spect Exam Date: 06/10/17 Report # : [id number] CPT Code: 01327 EMR/MR #: [id number] Ordering: JESSIKA BARBOUR Admiting: JESSIKA BARBOUR DO Primary: Jacinto Angulo MD Attending: JESSIKA BARBOUR DO Signed 2 DAY LEXISCAN STRESS & REST MYOCARDIAL PERFUSION SCANS, 06/10/2017-06/11/2017: Clinical History: Chest pain. Previous Exam: None at this facility. Monitoring Physician: Dr. Jessika Barbour. Dose: Stress dose: 39 mCi on 06/10/2017. Rest dose: 39 mCi on 06/10/2017. Quantitative Analysis: [id number] program with low dose limited CT chest scan attenuation correction. Exam Quality: Excellent. Rejected Beats: Stress = 4%; Rest = 5%. HR: Stress = 74-83 b/m; Rest = 83-91 b/m. Left ventricular chamber sizes are normal at stress and rest. Transient ischemic dilatation ratio is 1.00 (normal Rohit TID <= 1.22; normal Lexiscan TID <= 1.33). Stress LVEF: 75%; rest LVEF: 75%. Both the non-attenuated and the attenuated corrected scans show a normal stress and rest myocardial perfusion. There is normal stress and rest wall motion and thickening. Limited CT scans of the heart show extensive calcifications in the left mainstem, the proximal and middle thirds of the LAD, and almost all of the left circumflex and right coronary arteries. Calcifications are also felt to be present in the aortic valve. There are no lung nodules or enlarged nodes. Readin. Normal stress and rest left ventricular chamber size. Transient ischemic dilatation ratio is normal at 1.00. 2. Normal stress and rest LVEF values of 75% each. 3. Normal stress and rest myocardial perfusion, wall motion, and thickening. 4. Extensive coronary artery calcifications involving the left mainstem, proximal and middle thirds of the LAD, virtually all of the right coronary artery and left circumflex artery. There may also be calcifications in the aortic valve. Dictated By: 06/11/17 1314 JAGUAR MOSQUERA MD. Signed By: 06/11/17 1343 JAGUAR MOSQUERA MD. Patient Problems - Patient Problem List (1) Aortic valve stenosis Current Visit: No Status: Acute Onset Date: 06/09/11 Code(s): I35.0 - Nonrheumatic aortic (valve) stenosis Qualifiers: Cardiac valve disease etiology: etiology unspecified Qualified Code(s): I35.0 - Nonrheumatic aortic (valve) stenosis Category: Medical (2) Atypical chest pain Current Visit: Yes Status: Resolved Code(s): R07.89 - Other chest pain Category: Medical (3) Right shoulder pain Current Visit: Yes Status: Acute Code(s): M25.511 - Pain in right shoulder Qualifiers: Chronicity: acute Qualified Code(s): M25.511 - Pain in right shoulder Category: Medical (4) Diabetic neuropathy Current Visit: Yes Status: Chronic Category: Medical (5) Diabetes mellitus Current Visit: Yes Status: Chronic Qualifiers: Diabetes mellitus type: type 2 Diabetes mellitus shelter insulin use: without shelter use Diabetes mellitus complication status: with kidney complications Diabetes mellitus complication detail: with nephropathy Qualified Code(s): E11.21 - Type 2 diabetes mellitus with diabetic nephropathy Category: Medical (6) Varicose ulcer of lower extremity Current Visit: Yes Status: Chronic Qualifiers: Laterality: right Qualified Code(s): I83.019 - Varicose veins of right lower extremity with ulcer of unspecified site; L97.919 - Non-pressure chronic ulcer of unspecified part of right lower leg with unspecified severity Category: Medical (7) Mixed hyperlipidemia Current Visit: No Status: Chronic Category: Medical (8) Hypothyroidism Current Visit: Yes Status: Chronic Comment: Same medication. Code(s): E03.9 - Hypothyroidism, unspecified Qualifiers: Hypothyroidism type: acquired Qualified Code(s): E03.9 - Hypothyroidism, unspecified Category: Medical (9) Hypertension Current Visit: Yes Status: Chronic Comment: Continue the [facility] Code(s): I10 - Essential (primary) hypertension Qualifiers: Hypertension type: essential hypertension Qualified Code(s): I10 - Essential (primary) hypertension Category: Medical (10) Aortic valve stenosis Current Visit: No Status: Chronic Category: Medical
--- NOTE | 2017-06-11 15:55 | ORTHO.PROG ---
Last Taken Vital Signs: Vital Signs - Last Taken Temperature 97.8 F 06/11/17 11:07 Pulse Rate 85 06/11/17 11:07 Respiratory Rate 18 06/11/17 11:07 Blood Pressure 130/68 06/11/17 11:07 Pulse Ox 98 06/11/17 11:07 Subjective: Patient a shoulder feels better after injection on the right side carpal tunnel symptoms still present on right side. Objective: Examination shows about 80 of forward flexion of the shoulder abduction 60 of external rotation in neutral weakness with external rotation strength. Patient with pain with impingement testing tenderness over the subacromial space no redness or erythema. As far as her carpal tunnel symptoms patient with tingling into the median nerve distribution with a positive Tinel's thenar atrophy. Full motion of the digits. Assessment: Right shoulder advanced arthritic changes with rotator cuff arthropathy A right carpal tunnel syndrome Right hip arthritis Plan: Patient is going to be discharged today since she had cardiac clearance. I would like to get her set up to have an EMG nerve conduction study to see about carpal tunnel release. We'll continue to follow the shoulder moving forward and see her back for reevaluation or sooner for problems.
== END 2017-06-11 16:07 | disposition home or self-care (01) ==
LOC: MED/SURG 10:55 → ER 10:55 → MED/SURG 14:45
PROVIDERS: ADMIT Family Medicine; ATTEND Family Medicine